=== PATIENT | female | born 1955 | race Caucasian/White ===

== ENCOUNTER 2018-03-23 06:01 | Inpatient (IN) | payer OTHER ==
[~2018-03-23] VITALS: Ht 182.9 cm; Wt 142.7 kg
--- NOTE | ~2018-03-23 | EKG ---
[address] [address] [facility] [place] [address] ELECTROCARDIOGRAM REPORT Name: TOD FERGUSON Room #: 463-P [facility] IN .R.#: [id number] Admission: 03/23/18 Attend Phys: Karthik Leon MD Discharge: Date of : 57 Report #: [id number] THIS REPORT FOR: //name// [facility] ED Test Date: 2018-03-23 Test Time: 06:06:39 Pat Name: TOD FERGUSON Department: Room: Gender: F Sap Integration Architect: MADDIE : 1955 Requested By: Izabel Todd Order Number: [id number] MD: Danilo Jordan Measurements Intervals [place] Rate: 96 P: AR: QRS: 27 QRSD: 130 T: 51 QT: 334 QTc: 422 Interpretive Statements Sinus rhythm Early R-wave progression Nonspecific T wave abnormality Compared to ECG 05/25/2014 18:02:42 No significant change was found Electronically Signed On 03-24-2018 14:03:49 CDT by Danilo Jordan [email or web address] <ELECTRONICALLY SIGNED> By: Danilo Jordan MD, [facility] 03/24/18 1403 0606 0606 Danilo Jordan MD, [facility] /EPI
[~2018-03-23 06:01] MED LIST: ADVAIR 500-501 EACH INH; ALBUTEROL2.5 MG/31 INH; COMBIVENT INH; COMBIVENT RESPIM4 GM INH; COUMADIN 5 MG TA5 M1 PO; COUMADIN7.5 MG PO; DOXYCYCLINE 10100 M2 PO; DUONEB 2.5-0.5 M3 ML; DUONEB 2.5-0.5 M3 ML INH; FUROSEMIDE 20 M20 M1 PO; IBUPROFEN 800800 M1 PO; LEVAQUIN 750 M750 MG PO; NICOTINE TRANSD14 M1 TRANSDERM; PREDNISONE 10 M10 MG PO; PREDNISONE 20 M20 MG PO; PREDNISONE50 MG PO; TRAMADOL 50 MG50 MG PO; VALIUM2 MG PO; VENTOLIN HFA 1818 GM INH
[2018-03-23 06:57] LABS: EOSINOPHILS 1.6 % (0.0-3.0)
[2018-03-23 06:59] LABS: ABSOLUTE NEUTROPHILS 11.3 thou/uL (1.4-8.2); BASOPHILS 0.7 % (0.0-2.0); HEMATOCRIT 43.2 % (37.0-47.0); HEMOGLOBIN 14.3 gm/dL (12.0-15.0); LYMPHOCYTES 14.1 % (24.0-44.0); MCH 28.3 pg (26.0-34.0); MCHC 33.1 g/dL (28.0-37.0); MCV 85.7 fL (80.0-100.0); MONOCYTES 6.3 % (1.0-8.0); PLATELET COUNT 250 thou/uL (150-400); POLYS 77.3 % (36.0-66.0); RBC 5.04 mil/uL (4.20-5.00); RDW 16.9 % (10.5-14.5); WBC 16.4 thou/uL (4.0-11.0)
[2018-03-23 07:10] LABS: APTT 22.9 Seconds (24.5-32.8); INR 1.1; PROTIME 11.7 Seconds (9.3-11.4)
[2018-03-23 08:08] LABS: ANION GAP 7 mmol/L (7-16); BUN 15 mg/dL (7-18); CALCIUM 8.1 mg/dL (8.5-10.1); CHLORIDE 104 mmol/L (98-107); CO2 27 mmol/L (21-32); CREATININE 1.1 mg/dL (0.6-1.0); GLUCOSE 120 mg/dL (74-106); POTASSIUM 3.7 mmol/L (3.5-5.1); SODIUM 138 mmol/L (136-145)
[2018-03-23 08:17] LABS: TROPONIN-I <0.06 ng/mL (<0.06)
[2018-03-23] MEDS ORDERED: ZPAK PO (08:45)
[2018-03-23] MEDS ORDERED: PREDNISONE 20 M20 MG PO (08:45)
[2018-03-23] MEDS ORDERED: ACCUNEB SO1.25 MG/1 INH (10:58)
[2018-03-23 13:19] VITALS: BP 144/93
[2018-03-23 14:00] VITALS: BP 137/88
[2018-03-23] MEDS ORDERED: COUMADIN 5 MG TA5 M1 PO (14:31)
[2018-03-23] MEDS ORDERED: EXCEDRIN CAPLE1 EACH PO (14:33)
[2018-03-23 15:00] VITALS: BP 137/88
[2018-03-23 19:44] VITALS: BP 152/79
[2018-03-24 03:17] VITALS: BP 127/69
[2018-03-24 05:27] LABS: HEMATOCRIT 41.2 % (37.0-47.0); HEMOGLOBIN 13.5 gm/dL (12.0-15.0); MCH 27.8 pg (26.0-34.0); MCHC 32.7 g/dL (28.0-37.0); MCV 84.9 fL (80.0-100.0); RBC 4.85 mil/uL (4.20-5.00); RDW 16.6 % (10.5-14.5); WBC 10.6 thou/uL (4.0-11.0)
[2018-03-24 05:39] LABS: CALCIUM 8.3 mg/dL (8.5-10.1); CREATININE 1.1 mg/dL (0.6-1.0); INR 1.2; POTASSIUM 3.8 mmol/L (3.5-5.1); PROTIME 12.5 Seconds (9.3-11.4)
[2018-03-24 08:00] VITALS: BP 150/85
[2018-03-24 16:00] VITALS: BP 149/80
[2018-03-24 19:50] VITALS: BP 162/98
[2018-03-25 03:58] VITALS: BP 131/74
[2018-03-25 05:46] LABS: HEMATOCRIT 42.8 % (37.0-47.0); HEMOGLOBIN 13.9 gm/dL (12.0-15.0); MCH 27.8 pg (26.0-34.0); MCHC 32.4 g/dL (28.0-37.0); MCV 85.8 fL (80.0-100.0); RBC 4.99 mil/uL (4.20-5.00); RDW 16.7 % (10.5-14.5); WBC 14.2 thou/uL (4.0-11.0)
[2018-03-25 06:05] LABS: CALCIUM 8.5 mg/dL (8.5-10.1); CREATININE 1.1 mg/dL (0.6-1.0); POTASSIUM 3.9 mmol/L (3.5-5.1)
[2018-03-25 08:00] VITALS: BP 156/99
[2018-03-25 10:01] LABS: INR 1.8; PROTIME 18.2 Seconds (9.3-11.4)
[2018-03-25 16:00] VITALS: BP 140/82
[2018-03-25 19:41] VITALS: BP 149/96
[2018-03-26 01:03] VITALS: BP 186/88
[2018-03-26 01:06] LABS: GLYCOHEMOGLOBIN (HGB A1C) 5.7 % (4.8-5.6)
[2018-03-26 08:03] VITALS: BP 156/85
[2018-03-26 08:31] LABS: PROTIME 20.4 Seconds (9.3-11.4)
[2018-03-26] MEDS ORDERED: COMBIVENT INH (15:00)
[2018-03-26] MEDS ORDERED: ADVAIR 500-501 EACH INH (15:01)
[2018-03-26] MEDS ORDERED: VENTOLIN HFA 1818 GM INH (15:01)
[2018-03-26] MEDS ORDERED: LASIX 20 MG TAB20 MG PO (15:02)
[2018-03-26] MEDS ORDERED: LEVAQUIN 750 M750 MG PO (15:02)
[2018-03-26] MEDS ORDERED: PREDNISONE 10 M10 MG PO (15:04)
[2018-03-26] MEDS ORDERED: NICOTINE TRANSD14 M1 TRANSDERM (15:06)
[2018-03-26 15:29] VITALS: BP 156/85
== END 2018-03-26 16:07 | disposition home or self-care (01) | DRG 193 ==
LOC: ER 06:01 → EROBS 08:59 → 4W 14:14 → SICU 03-25 21:03 → ENTRNSPT 03-26 15:59 → SICU 03-26 16:07
PROVIDERS: Emergency Medicine; Hospitalist
DX: J18.9 Pneumonia, unspecified organism (principal); J96.21 Acute and chronic respiratory failure with hypoxia; J44.1 Chronic obstructive pulmonary disease with (acute) exacerbation; J44.0 Chronic obstructive pulmonary disease with (acute) lower respiratory infection; G43.909 Migraine, unspecified, not intractable, without status migrainosus; F17.210 Nicotine dependence, cigarettes, uncomplicated; Z86.718 Personal history of other venous thrombosis and embolism; Z88.2 Allergy status to sulfonamides; Z79.899 Other long term (current) drug therapy; Z79.82 Long term (current) use of aspirin; Z86.711 Personal history of pulmonary embolism
CPT/HCPCS: 10045; 15001

== ENCOUNTER 2018-04-20 02:57 | Emergency (ER) | payer OTHER ==
[~2018-04-20] VITALS: Ht 182.9 cm; Wt 136.1 kg
--- NOTE | ~2018-04-20 | EKG ---
[address] [address] [place] [address] ELECTROCARDIOGRAM REPORT Name: TOD FERGUSON Room #: [facility]#: [id number] Admission: 04/20/18 Attend Phys: Discharge: 04/20/18 Date of : 57 Report #: [id number] THIS REPORT FOR: //name// [facility] ED Test Date: 2018-04-20 Test Time: 03:25:08 Pat Name: TOD FERGUSON Department: Room: Gender: F Neon Pumper: latonia arriola : 1955 Requested By: Izabel Todd Order Number: [id number] MD: Rajat Hirsch Measurements Intervals [place] Rate: 88 P: 67 MD: 161 QRS: 13 QRSD: 101 T: 54 QT: 367 QTc: 444 Interpretive Statements Sinus rhythm RSR' in V1 or V2, right VCD Borderline T abnormalities, anterior leads Compared to ECG 03/23/2018 06:06:39 Right ventricular hypertrophy now present RSR' in V1 or V2 now present T-wave abnormality still present Electronically Signed On 04-20-2018 10:15:59 CDT by Rajat Hirsch [email or web address] <ELECTRONICALLY SIGNED> By: Rajat Hirsch MD 04/20/18 1015 0325 0325 Rajat Hirsch MD /EPI
[~2018-04-20 02:57] MED LIST changes: +ACCUNEB SO1.25 MG/1 INH; +EXCEDRIN CAPLE1 EACH PO; +LASIX 20 MG TAB20 MG PO; +ZPAK PO
[2018-04-20 04:03] LABS: ABSOLUTE NEUTROPHILS 6.4 thou/uL (1.4-8.2); BASOPHILS 0.6 % (0.0-2.0); EOSINOPHILS 1.4 % (0.0-3.0); HEMATOCRIT 40.6 % (37.0-47.0); HEMOGLOBIN 13.4 gm/dL (12.0-15.0); LYMPHOCYTES 15.8 % (24.0-44.0); MCH 28.1 pg (26.0-34.0); MCHC 32.9 g/dL (28.0-37.0); MCV 85.5 fL (80.0-100.0); MONOCYTES 6.8 % (1.0-8.0); PLATELET COUNT 305 thou/uL (150-400); POLYS 75.4 % (36.0-66.0); RBC 4.75 mil/uL (4.20-5.00); RDW 16.8 % (10.5-14.5); WBC 8.4 thou/uL (4.0-11.0)
[2018-04-20 04:10] LABS: ANION GAP 4 mmol/L (7-16); BUN 18 mg/dL (7-18); CALCIUM 8.8 mg/dL (8.5-10.1); CHLORIDE 106 mmol/L (98-107); CO2 29 mmol/L (21-32); CREATININE 1.5 mg/dL (0.6-1.0); GLUCOSE 115 mg/dL (74-106); POTASSIUM 4.8 mmol/L (3.5-5.1); SODIUM 139 mmol/L (136-145)
[2018-04-20 04:19] LABS: TROPONIN-I <0.06 ng/mL (<0.06)
[2018-04-20] MEDS ORDERED: PREDNISONE 20 M20 MG PO (04:59)
== END 2018-04-20 05:13 | disposition home or self-care (01) ==
LOC: ER 02:57
PROVIDERS: Emergency Medicine
DX: J44.1 Chronic obstructive pulmonary disease with (acute) exacerbation (principal); F17.210 Nicotine dependence, cigarettes, uncomplicated; G43.909 Migraine, unspecified, not intractable, without status migrainosus; Z88.2 Allergy status to sulfonamides; Z86.718 Personal history of other venous thrombosis and embolism

== ENCOUNTER 2019-04-28 11:53 | Inpatient (IN) | payer OTHER ==
[~2019-04-28] VITALS: Ht 182.9 cm; Wt 149.7 kg
[2019-04-28 11:56] VITALS: BP 131/81
[2019-04-28 12:38] LABS: ABSOLUTE NEUTROPHILS 7.5 thou/uL (1.4-8.2); BASOPHILS 0.6 % (0.0-2.0); EOSINOPHILS 0.8 % (0.0-3.0); HEMATOCRIT 44.6 % (37.0-47.0); HEMOGLOBIN 14.8 gm/dL (12.0-15.0); LYMPHOCYTES 14.6 % (24.0-44.0); MCH 29.2 pg (26.0-34.0); MCHC 33.3 g/dL (28.0-37.0); MCV 87.6 fL (80.0-100.0); MONOCYTES 6.3 % (1.0-8.0); POLYS 77.7 % (36.0-66.0); RBC 5.09 mil/uL (4.20-5.00); RDW 15.6 % (10.5-14.5); WBC 10.2 thou/uL (4.0-11.0)
[2019-04-28 12:49] LABS: ANION GAP 7 mmol/L (7-16); BUN 14 mg/dL (7-18); CALCIUM 9.3 mg/dL (8.5-10.1); CHLORIDE 103 mmol/L (98-107); CO2 30 mmol/L (21-32); CREATININE 1.1 mg/dL (0.6-1.0); GLUCOSE 103 mg/dL (74-106); POTASSIUM 4.5 mmol/L (3.5-5.1); SODIUM 140 mmol/L (136-145)
[2019-04-28 13:00] LABS: ALBUMIN 3.3 g/dL (3.4-5.0); SGOT 13 U/L (15-37); SGPT 20 U/L (30-65); TOTAL BILIRUBIN 0.5 mg/dL (<0.1-1.0); TOTAL PROTEIN 7.5 g/dL (6.4-8.2); TROPONIN-I <0.06 ng/mL (<0.06)
[2019-04-28 13:20] LABS: PLATELET COUNT 253 thou/uL (150-400)
[2019-04-28 13:46] LABS: PROTIME 10.4 Seconds (9.3-11.4)
[2019-04-28 13:50] LABS: URINE BILIRUBIN NEGATIVE (Negative); URINE BLOOD NEGATIVE (Negative); URINE CLARITY CLEAR; URINE COLOR YELLOW; URINE GLUCOSE-RANDOM* NEGATIVE (Negative); URINE KETONES NEGATIVE (Negative); URINE LEUKOCYTES NEGATIVE (Negative); URINE NITRITE NEGATIVE (Negative); URINE PROTEIN (DIPSTICK) NEGATIVE (Negative); URINE UROBILINOGEN 0.2 E.U./dl (0.2-1.0)
[2019-04-28 13:56] LABS: APTT 27.2 Seconds (24.5-32.8)
[2019-04-28 16:59] VITALS: BP 127/73
[2019-04-28 17:16] VITALS: BP 150/78
[2019-04-28 18:05] VITALS: BP 149/70
--- NOTE | 2019-04-28 21:37 | NUR ---
ADMISSION NOTE: SHE IS SITTING UP AND ATE 100% DINNER. CTA COMPLETED AT SHIFT CHANGE. HER CONCERN AND MAIN REASON THAT BROUGHT HER TO THE HOSPITAL WAS HER INABILITY TO GET HER MEDICATIONS. SHE RECENTLY RELOCATED TO [place] AND IS UNABLE TO GET HER MEDICATIONS. SHE IS CURRENTLT WORKING ON PAPERWORK THAT NEEDS TO BE SUBMITTED. I OFFERED THE HELP OF CASEMANAGEMENT TO ASSIST WITH QUESTION ON PAPERWORK IF NEEDED. SHE STATED THAT HER LIVING SITUATION HAS IMPROVED RECENTLY, WITH THIS MOVE. SHE IS UNAGREEABLE AND ANXIOUS, SHE REQUESTS THAT HER LEGS ARE WRAPPED IN KERLIX TONIGHT, AND WOULD LIKE THE SCD HOSE. SHE HAS CLEAR SKIN EXCEPT FOR TWO ABRASION AREAS WHICH ARE SMALL. SHE CONTINUES TO SMOKE AND HAS A NICOTINE PATCH ORDERED. SHE STATED THAT SHE WANTS EXECEDRIN FOR A HEADACHE. I OFFERED TYLENOL AND A CAFFIENATED DRINK, INSTEAD. SHE STATED THAT TYLENOL DOES NOTHING AND REFUSES TO TRY. HOWEVER, SHE DID ACCEPT THE COLA. I EXPLAINED THAT THE USE OF ASPRIN WITH THE COUMADIN IS CONTRAINDICATED AND THAT SHE SHOULD SPEAK WITH HER PHYSCIAN REGARDING THIS.
[2019-04-29 04:36] VITALS: BP 155/85
[2019-04-29 05:12] LABS: PROTIME 10.7 Seconds (9.3-11.4)
[2019-04-29 05:18] LABS: CALCIUM 8.5 mg/dL (8.5-10.1); CREATININE 1.1 mg/dL (0.6-1.0); MAGNESIUM 2.3 mg/dL (1.8-2.4); POTASSIUM 4.8 mmol/L (3.5-5.1)
[2019-04-29 07:48] VITALS: BP 153/84
--- NOTE | 2019-04-29 08:15 | EKG ---
[address] [place] [address] ELECTROCARDIOGRAM REPORT Name: TOD FERGUSON Room #: 354-P ADM IN M.R.#: [id number] Admission: 04/28/19 Attend Phys: Jeremy Aviles MD Discharge: Date of : 57 Report #: [id number] THIS REPORT FOR: //name// [facility] ED Test Date: 2019-04-28 Test Time: 12:01:28 Pat Name: TOD FERGUSON Department: Room: 354 Gender: F Navy Seal: KELLIE : 1955 Requested By: Izabel Todd Order Number: [id number] MD: Danilo Jordan Measurements Intervals [place] Rate: 79 P: 45 RI: 146 QRS: 33 QRSD: 120 T: 32 QT: 358 QTc: 411 Interpretive Statements Sinus rhythm Right ventricular conduction delay Baseline wander in lead(s) V2 Compared to ECG 04/20/2018 03:25:08 No significant change was found Electronically Signed On 04-29-2019 8:15:40 CDT by Danilo Jordan [email or web address] <ELECTRONICALLY SIGNED> By: Danilo Jordan MD, [facility] 04/29/19 0815 1201 1201 Danilo Jordan MD, [facility] /EPI
--- NOTE | 2019-04-29 10:24 | NUR ---
RD consult received, no reason specified. Admit with copd, pneumonia. Noncompliance and continues +tobacco use. BMI 44=extreme class III obesity with possible wt gain 16 lb gain over past year-however does have bilateral 3+ leg and arm edema documented and requires lasix. Tolerating meals, voiced no questions regarding diet. Has some skin abrasions, but otherwise low nutrition risk
--- NOTE | 2019-04-29 11:13 | NUR ---
WOUND CONSULT; NO WOUNDS IDENTIFIED, ONLY LYMPHEDEMA. THIS IS MANAGED BY O.T. RECOMMENDATIONS; NO NEED TO FOLLOW AT THIS TIME DISCUSSED WITH STAFF
--- NOTE | 2019-04-29 14:47 | NUR ---
ASSESSMENT: CM REVIEWED CHART AND MET WITH PATIENT AT THE BEDSIDE. PT IS ALERT AND ORIENTED X4. PT WAS ADMITTED WITH DYSPNEA. PT REPORTS LIVING IN AN APT WITH HER . PT STATES IT IS ON THE FIRST FLOOR AND HAS NO STEPS TO ENTER OR ONCE INSIDE. PT REPORTS THAT SHE AMBULATES INDEPENDENTLY AND IS INDEPENDENT WITH ADLS. PT DENIES HAVING HH IN THE PAST OR BEING TO A SNF. CM DISCUSSED ROLE. PT STATES SHE MAY BENEFIT FROM HH AT DISCHARGE. PT REPORTS SHE ALSO HAS OXYGEN PRN AT HOME THROUGH [facility]. CM WILL CONTINUE TO FOLLOW TO ASSIST NEEDED.
[2019-04-29 16:05] VITALS: BP 158/92
--- NOTE | 2019-04-29 18:44 | NUR ---
ASSUMED PATIENT CARE AT 0700. A/O X4. ANXIOUS. AMBULATED IN ROOM WITH STB. 4+ EDEMA BLE. BLE ERMA WRAPED. TOLEATED ON 3L. SLOWLY TOWARDS POC GOALS.
[2019-04-29 19:42] VITALS: BP 143/81
[2019-04-30 03:30] VITALS: BP 152/74
--- NOTE | 2019-04-30 06:08 | NUR ---
FOLLOWING POC WITH IVPB ANTIBIOTICS AND METHYLPRED Q6. PT ASKED OR ORAL PAIN MEDICATION X1. PT AMBULATES AD LAILA TO BATHROOM. DISCUSSED POC WITH PT AND ANSWERED HER QUESTIONS ABOUT POSSIBLE DISCHARGE. EDUCATED PT ON TYPICAL IVPB THERAPY AND ISSUES WITH DISCHARGING EARLY. PT SUGGESTED SHE WILL SPEAK WITH DOCTOR DURING ROUNDS. HOURLY ROUNDING AND CALL LIGHT WITHIN REACH.
[2019-04-30 06:17] LABS: HEMATOCRIT 43.9 % (37.0-47.0); HEMOGLOBIN 14.3 gm/dL (12.0-15.0); MCH 28.6 pg (26.0-34.0); MCHC 32.7 g/dL (28.0-37.0); MCV 87.4 fL (80.0-100.0); RBC 5.02 mil/uL (4.20-5.00); RDW 15.9 % (10.5-14.5); WBC 8.9 thou/uL (4.0-11.0)
[2019-04-30 06:27] LABS: CALCIUM 8.8 mg/dL (8.5-10.1); CREATININE 1.2 mg/dL (0.6-1.0); POTASSIUM 4.5 mmol/L (3.5-5.1)
[2019-04-30 08:03] VITALS: BP 152/91
[2019-04-30] MEDS ORDERED: PREDNISONE 10 M10 MG PO (12:51)
[2019-04-30 13:59] VITALS: BP 152/91
--- NOTE | 2019-04-30 13:59 | NUR ---
ON-GOING ASSESSMENT: CM REVIEWED CHART AND SPOKE WITH ATTENDING. PT HAS ORDERS TO DISCHARGE HOME. PT HAS MEDICAID SO IS UNABLE TO GET HH LYMPHEDEMA WRAPPING DUE TO OT DOING THIS AND PATIENT DOES NOT QUALIFY FOR THERAPIES AT HOME WITH [place] MEDICAID. CM DISCUSSED THIS WITH PATIENT AND THAT SHE COULD TRY DOING IT OUTPATIENT. PT STATING HER CAN DO IT AND HAD BEEN THERE WHEN THEY DID IT EARLIER. PT REPORTS SHE IS CONFORTABLE WITH HER DOING IT AND DOES NOT FEEL SHE NEEDS HH. CM REACHED OUT TO HH AND THEY STATED THAT OT H TO DO IT AND NOT NURSING DO IT COULD NOT BE DONE. PT REPORTS NO FURTHER NEEDS FROM CM.
[2019-04-30] MEDS ORDERED: VENTOLIN HFA 1818 GM INH (14:41)
[2019-04-30] MEDS ORDERED: COMBIVENT INH (14:42)
--- NOTE | 2019-04-30 15:22 | NUR ---
ASSUMED CARE OF PT AT 0700. PT ALERT AND ORIENTED IN NO ACUTE DISTRESS. BREATHING COMFORTABLY ON ROOM AIR. DIMINISHED/OCCASIONAL WHEEZES TO AUSCULTATION. UP AD LAILA W/ STEADY GAIT. SINUS ON TELEMETRY. VITALS STABLE. OK FOR DISCHARGE.
--- NOTE | 2019-04-30 15:33 | NUR ---
SPOKE WITH CM AND FOUND OUT Pt WAS BEING DISCHARGE. WENT UP TO ROOM TO PROVIDE PT/SPOUSE WITH INSTRUCTION ON HOW TO BANDAGE AND LYMPHEDEMA PRECAUTIONS. Pt WAS DISCHARGE BEFORE THERAPIST ARRIVED. WILL MAIL INSTRUCTION TO [facility].
== END 2019-04-30 15:25 | disposition home or self-care (01) | DRG 191 ==
LOC: ER 11:53 → EROBS 14:34 → 3W 17:16 → ENTRNSPT 04-30 15:19 → EDTRNSPTSTS 04-30 15:20 → 3W 04-30 15:25
PROVIDERS: Emergency Medicine; Internal Medicine; Nurse Practitioner; ADMIT Internal Medicine
DX: J44.1 Chronic obstructive pulmonary disease with (acute) exacerbation (principal); Z68.41 Body mass index [BMI] 40.0-44.9, adult; F17.210 Nicotine dependence, cigarettes, uncomplicated; E66.9 Obesity, unspecified; G43.909 Migraine, unspecified, not intractable, without status migrainosus; L53.9 Erythematous condition, unspecified; Z86.718 Personal history of other venous thrombosis and embolism; Z88.2 Allergy status to sulfonamides; Z91.14 Patient's other noncompliance with medication regimen; Z86.711 Personal history of pulmonary embolism; Z79.899 Other long term (current) drug therapy
CPT/HCPCS: 10879

== ENCOUNTER 2019-06-07 10:45 | Emergency (ER) | payer OTHER ==
[~2019-06-07] VITALS: Ht 182.9 cm; Wt 144.7 kg
[2019-06-07] MEDS ORDERED: ALBUTEROL2.5 MG/31 INH (11:13)
[2019-06-07 11:41] LABS: ABSOLUTE NEUTROPHILS 5.9 thou/uL (1.4-8.2); EOSINOPHILS 2.5 % (0.0-3.0); LYMPHOCYTES 14.4 % (24.0-44.0); MCH 27.8 pg (26.0-34.0); MCHC 31.9 g/dL (28.0-37.0); MCV 87.3 fL (80.0-100.0); MONOCYTES 9.1 % (1.0-8.0); PLATELET COUNT 296 thou/uL (150-400); RBC 5.38 mil/uL (4.20-5.00); RDW 15.8 % (10.5-14.5)
[2019-06-07 11:44] LABS: CALCIUM 9.3 mg/dL (8.5-10.1); CREATININE 1.1 mg/dL (0.6-1.0); POTASSIUM 4.3 mmol/L (3.5-5.1)
[2019-06-07 11:49] LABS: ALBUMIN 3.3 g/dL (3.4-5.0); TOTAL BILIRUBIN 0.4 mg/dL (<0.1-1.0); TOTAL PROTEIN 7.7 g/dL (6.4-8.2)
--- NOTE | 2019-06-07 12:02 | EKG ---
[facility] [place] [address] ELECTROCARDIOGRAM REPORT Name: TOD FERGUSON Room #: [facility]#: [id number] ������������������ Admission: 06/07/19 ������������������ Attend Phys: Discharge: ������������������ Date of : 57 Report #: [id number] ����������������������������������������������������������������� [id number] THIS REPORT FOR: //name// [facility] ED Test Date: 2019-06-07 Test Time: 11:42:31 Pat Name: TOD FERGUSON Department: Room: Gender: F Heating Technician: jlpamela : 1955 Requested By: Shilpa Gomez Order Number: [id number] MD: Danilo Jordan Measurements Intervals [place] Rate: 79 P: 53 MA: 147 QRS: 12 QRSD: 92 T: 32 QT: 377 QTc: 433 Interpretive Statements Sinus rhythm RSR' in V1 or V2, right VCD Borderline T abnormalities, anterior leads Compared to ECG 04/28/2019 12:01:28 No significant change was found Electronically Signed On 06-07-2019 12:02:07 CDT by Danilo Jordan [email or web address] ��������������������������������������������� <ELECTRONICALLY SIGNED> ���������������������������������������� By: Danilo Jordan MD, [facility] ��������������������������������������������� 06/07/19 1202 1142 1142 Danilo Jordan MD, [facility] /EPI
[2019-06-07] MEDS ORDERED: KEFLEX500 M1 PO (12:31)
[2019-06-07 12:38] VITALS: BP 133/76
== END 2019-06-07 12:39 | disposition home or self-care (01) ==
LOC: ER 10:45
PROVIDERS: Physician Assistant
DX: S81.812A Laceration without foreign body, left lower leg, initial encounter (principal); R60.0 Localized edema; J44.9 Chronic obstructive pulmonary disease, unspecified; G43.909 Migraine, unspecified, not intractable, without status migrainosus; F17.210 Nicotine dependence, cigarettes, uncomplicated; Z86.711 Personal history of pulmonary embolism; Z86.718 Personal history of other venous thrombosis and embolism; Z88.2 Allergy status to sulfonamides; W22.8XXA Striking against or struck by other objects, initial encounter; Y93.02 Activity, running; Y92.89 Other specified places as the place of occurrence of the external cause; Y99.8 Other external cause status

== ENCOUNTER 2019-11-20 20:08 | Inpatient (IN) | payer OTHER ==
[~2019-11-20] VITALS: Ht 182.9 cm; Wt 152.4 kg
--- NOTE | ~2019-11-20 | HC ---
[facility] [place] [address] CONSULTATION Name: CHRIS FERGUSON Room #: 350-P [facility] IN .R.#: [id number] Admission: 11/20/19 Attend Phys: Denzel Willams MD Discharge: Date of : 57 Report #: [id number] THIS REPORT FOR: cc: Denzel Willams MD,Kyle Caldera MD, MD ~ CC: Denzel Willams DATE OF SERVICE: 11/24/2019 HISTORY OF PRESENT ILLNESS: The patient is a 64-year-old female who was admitted with shortness of breath and community-acquired pneumonia. She was diagnosed with COPD exacerbation. She has been treated with IV antibiotics, prednisone, and bronchodilators. We are seeing her in Rehabilitation Medicine consultation. She has a prior history of morbid obesity, chronic bilateral lower extremity lymphedema, pulmonary embolism, and hypertension. She has been a chronic tobacco smoker, quit approximately a month ago. She also had a recent fall with sutures to her forehead that were just removed earlier today. MEDICATIONS: Please see the full medication listing. ALLERGIES: SULFA. SOCIAL HISTORY: Lives with her in an apartment, no steps. works during the day and she is at home. Premorbidly, she was on 2-3 liters of oxygen. She sleeps in a recliner. wraps her lower extremities with her lymphedema. She notes that her is taking a couple of weeks off to stay with her and she has a [id number] that is involved as well who is bringing in her walker. REVIEW OF SYSTEMS: No current complaints of chest pain, shortness of breath, or abdominal discomfort. She notes her frustration with being here and is hoping to return directly home. She notes she is grumpy because she recently quit smoking. PHYSICAL EXAMINATION: GENERAL: A 64-year-old morbidly obese female, in no obvious distress. Height 6 feet, weight 345 pounds. She is alert. VITAL SIGNS: Temperature 97.8, pulse 75, respirations 24, blood pressure 152/78. She is on nasal prong O2, currently 4 liters. HEENT: She has the laceration over her forehead with the suture removed. Facies appeared symmetric. NEUROLOGIC: She is somewhat cantankerous, but does follow basic commands. EXTREMITIES: Functional range of motion of both upper extremities. Strength is grade 5/5 with excellent wire spring relay adjuster. Lower extremities: She does have bilateral lower extremity lymphedema. ERMA wraps are in place distally. Strength is at [address] [address] CONSULTATION Name: CHRIS FERGUSON Room #: [address] [place] [address] [place] ..#: [id number] Admission: 11/20/19 Attend Phys: Denzel Willams MD Discharge: Date of : 57 Report #: [id number] least a grade 4-/5. Tone appeared to be intact. She was able to get up and she ambulated with the nurse around the hallway utilizing a walker, her oxygen and a gait belt. She refused to get up with physical therapy because she had just gotten up with the nurse. ASSESSMENT: A 64-year-old female with the following problem list: 1. Chronic obstructive pulmonary disease exacerbation. 2. Chronic bilateral lower extremity lymphedema. 3. Recent fall with facial laceration with suture removal. 4. Morbid obesity. 5. Nicotine addiction. PLAN: The patient did get up and ambulate with the nursing today out in the hallway. She utilized a walker and was just needing gait belt assistance to standby. She is adamant about returning directly home and notes that her is off work and can assist her and she has a brother there as well. Discussed with case management. The therapist to continue to work with her as she will allow. At this point, the goal would be to try to get her directly home if and when felt medically cleared as per Dr. Willams. She is not interested in any type of rehabilitation other than going directly home and would then recommend some home healthcare. Thank you for asking us to assist in this patient's care. By: [phone] Kyle Meza MD /SITA
--- NOTE | ~2019-11-20 | EMS ---
[address] [address] EMS Patient Care Report Name: TOD FERGUSON Room #: PRE M.R.#: [id number] Admission: Attend Phys: Discharge: Date of : 57 Report #: [id number] THIS REPORT FOR: //name// Report Transmitted: 11/20/2019 19:28 EMS Care Summary [facility] MED-ACT Incident [id number] @ 11/20/2019 19:23 Incident Location [address] [place] [address] Patient CHRIS FERGUSON Female, 64 Years 1955 Patient Address [address] [place] [address] Patient History Chronic Obstructive Pulmonary Disease (COPD),Hypertension (HTN),Smoking, Patient Allergies No known allergies, Patient Medications Proair, Albuterol, Chief Complaint injury to chest Disposition Transported No Lights/[place] Reason Sick Person Transported To [facility] Narrative Upon EMS arrival pt was sitting upright on her couch. Pt was alert and oriented. Pt states that she fell 7 days ago. Pt was evaluated at an ED X2 [address] [address] EMS Patient Care Report Name: TOD FERGUSON Room #: [facility]#: [id number] Admission: Attend Phys: Discharge: Date of : 57 Report #: [id number] since the fall. Pt has stitches in her forehead. Pt is complaining of a headache. Pt has bruising to the left side of her chest. pt is complaining of left sided chest pain with movement or coughing. Pt is also complaining of a swollen and painful left leg. Pts is obese so it is difficult for EMS to tell the degree of swelling. Both legs are red. pt has an increased resp rate but states that this is normal for her. Pt was able to stand and sit on the cot and was secured by all straps. Pt was transported to [facility] at her request despite being evaluated at [facility] prior to this. Pts vitals stable during transport. pt states during transport that she "has felt cold and achy like the flu". Mask placed on pt. Pt was taken to room 10 and was moved to the ED bed by EMS and ED staff. Report given to RN Initial Vitals @19:42P: 94,R: 19,EtCO2: 30,SpO2: 89,UT Suspected: false @19:58P: 89,R: 26,BP: 140/88,Temp: 97.6F,EtCO2: 38,SpO2: 96, @19:40P: 100,R: 28,BP: 178/94,GCS: 15,EtCO2: 39,SpO2: 85,Revised Trauma: 12, @19:37P: 107,R: 24,BP: 182/109,Pain: 4/10,GCS: 15,SpO2: 85,Revised Trauma: 12,UT Suspected: false Assessments @19:35MENTAL:Person Oriented,Time Oriented,Event Oriented,Place Oriented,SKIN:HEENT:Head/Face: No Abnormalities,Neck/Airway: No Abnormalities,LUNG SOUNDS:ABDOMEN:PELVIS//GI:EXTREMITIES:Left Leg: Other,Left Leg: Edema,Right Leg: Edema,Left Arm: No Abnormalities,Right Arm: No Abnormalities,PULSE:NEURO: Impression Chest Pain, Other (Non-Cardiac) Procedures @19:4212-Lead ECGResponse: UnchangedSucceeded@19:35Oxygen FlowRate: 4 Device: CO2 Nasal Cannula Response: ImprovedSucceeded Timeline 19:22,Call Received 19:22,Psap Call 19:23,Dispatched 19:23,En Route 19:29,On Scene 19:30,At Patient 19:35,Oxygen FlowRate: 4 Device: CO2 Nasal Cannula Response: ImprovedSucceeded, 19:37,BP: 182/109 M,PULSE: 107,RR: 24 R,SPO2: 85 Ox,ETCO2: ,BG: ,PAIN: 4,GCS: 15, 19:40,BP: 178/94 M,PULSE: 100,RR: 28 R,SPO2: 85 Ox,ETCO2: 39 ,BG: ,PAIN: ,GCS: 15, 19:42,12-Lead ECG,Response: UnchangedSucceeded, [facility] [address] [place] [address] EMS Patient Care Report Name: TOD FERGUSON Room #: [facility].#: [id number] Admission: Attend Phys: Discharge: Date of : 57 Report #: [id number] 19:42,BP: / M,PULSE: 94,RR: 19 R,SPO2: 89 Ox,ETCO2: 30 ,BG: ,PAIN: ,GCS: , 19:44,Depart Scene 19:58,BP: 140/88 M,PULSE: 89,RR: 26 R,SPO2: 96 Ox,ETCO2: 38 ,BG: ,PAIN: ,GCS: , 20:02,At Destination 20:30,Call Closed Disclaimer v1.1 Copyright 2020 [employer] This EMS Care Summary contains data elements from the applicable legal record (which may be displayed differently). It is designed to provide pertinent information for the following purposes: continuity of care, clinical quality, and state data reporting. The complete legal record is available to ED staff and administrators of the receiving hospital in [employer] Patient Tracker. All data is provided "as is."
[~2019-11-20 20:08] MED LIST changes: +KEFLEX500 M1 PO
[2019-11-20 20:09] VITALS: BP 156/80
[2019-11-20 20:27] LABS: ABSOLUTE NEUTROPHILS 6.7 thou/uL (1.4-8.2); BASOPHILS 0.9 % (0.0-2.0); EOSINOPHILS 2.1 % (0.0-3.0); HEMATOCRIT 41.9 % (37.0-47.0); HEMOGLOBIN 13.2 gm/dL (12.0-15.0); LYMPHOCYTES 13.9 % (24.0-44.0); MCHC 31.6 g/dL (28.0-37.0); MCV 85.3 fL (80.0-100.0); MONOCYTES 8.8 % (1.0-8.0); PLATELET COUNT 284 thou/uL (150-400); POLYS 74.3 % (36.0-66.0); RDW 15.7 % (10.5-14.5)
[2019-11-20 20:34] LABS: ANION GAP 6 mmol/L (7-16); BUN 16 mg/dL (7-18); CALCIUM 8.1 mg/dL (8.5-10.1); CHLORIDE 104 mmol/L (98-107); CO2 31 mmol/L (21-32); GLUCOSE 100 mg/dL (74-106); POTASSIUM 4.4 mmol/L (3.5-5.1); SODIUM 141 mmol/L (136-145)
[2019-11-20 20:43] LABS: TROPONIN-I <0.06 ng/mL (<0.06)
[2019-11-20 20:47] LABS: BE(vivo) 2.4 mmol/L (-2 to +3); HCO3 29.3 mmol/L (22.0-26.0); PCO2 55.3 mmHg (35.0-45.0); PO2 97.4 mmHg (80.0-100.0); pH 7.342 (7.360-7.450); sO2 96.9 % (92.0-98.0)
[2019-11-20 22:05] VITALS: BP 141/66
[2019-11-20 22:06] VITALS: BP 141/66
[2019-11-20 23:02] VITALS: BP 116/54
[2019-11-20 23:20] VITALS: BP 134/69
[2019-11-21 04:23] VITALS: BP 121/73
--- NOTE | 2019-11-21 05:55 | NUR ---
PT ARRIVED TO ROOM AROUND 2315 FROM THE ER. ADMISSION HX AND ASSESSMENT COMPLETED CHARTED. PT C/O LEFT SIDED RIB PAIN AND LEFT LEG PAIN DUE TO FALL PRIOR TO ADMISSION. PT HAS EXTENSIVE BRUISING ON LEFT SIDE OF BODY. BLE WRAPPED WITH KERLIX AND ERMA WRAPS PER DR ORDER. PRN PAIN MEDICATION GIVEN FOR PAIN. PT WAS THEN ABLE TO GO TO SLEEP. PT RESTING QUIETLY IN BED AT THIS TIME. VSS. AFEBRILE. PROGRESSING SLOWLY TOWARD POC GOALS. WILL CONTINUE TO MONITOR FURTHER.
[2019-11-21 07:06] VITALS: BP 150/81
--- NOTE | 2019-11-21 08:04 | EKG ---
[facility] [place] [address] ELECTROCARDIOGRAM REPORT Name: CHRIS FERGUSON Room #: 350-P ADM IN M.R.#: [id number] Admission: 11/20/19 Attend Phys: Denzel Willams MD Discharge: Date of : 57 Report #: [id number] THIS REPORT FOR: cc: Denzel Willams MD, Ammar MD Lundgren,Danilo Regan MD [facility] ~ THIS REPORT FOR: //name// [facility] ED Test Date: 2019-11-20 Test Time: 20:25:52 Pat Name: CHRIS FERGUSON Department: Room: 350 Gender: F All Round Butcher: phuong : 1955 Requested By: Wesley Tavarez Order Number: [id number] MD: Danilo Jordan Measurements Intervals [place] Rate: 91 P: 58 HI: 159 QRS: 29 QRSD: 89 T: 47 QT: 330 QTc: 407 Interpretive Statements Sinus rhythm RSR' in V1 or V2, right VCD Compared to ECG 06/07/2019 11:42:31 no significant change was found Electronically Signed On 11-21-2019 8:03:34 SERVICE TEAM LEADER by Danilo Jordan [email or web address] <ELECTRONICALLY SIGNED> By: Danilo Jordan MD, [facility] 11/21/19802 24 24 Danilo Jordan MD, [facility] /EPI
--- NOTE | 2019-11-21 14:16 | NUR ---
Nutrition: Received RD consult for obesity. Pt has been seen in the past by RD in Apr 2019 and declined diet education at this time. Seen again this afternoon. Here for COPD exacerbation, pneumonia, edema. Hx: COPD , chronic BLE lymphedema. Per EMR review, pt has gained +38# in < 2 yrs (some could be lymphedema related). Up from 314.6# in 03/2018, to 330# in 04/2019, now 353#. On a regular diet. RD offered nutrition education to improve eating habits at home. Pt denied, just started talking about her fall and her head stiches and bruising. RD did encourage pt to be mindful of having a balanced plate, with ideal goal of at least 3 food groups/meal to make it more complete. Explained examples. Keep as low nutrition risk as pt declined education intervention.
[2019-11-21 16:04] VITALS: BP 128/54
--- NOTE | 2019-11-21 16:57 | NUR ---
INITIAL ASSESSMENT: SW reviewed cahrt and spoke with nursing. Pt was admitted from home due to COPD exacerbation. SW met with pt and at bedside. Introduced role of SW. Pt is alert/orientated x 4. Pt reports that she and her live in an apt. No steps to navigate. Prior to admission, pt was independent with ADLs. No DME to use with ambulation. Pt has home O2 in place through [employer]. Pt states she is normally on 2-3L. No hx of HH services or post-acute placement in the past. Pt's PCP is Dr. Willams. Pt and spouse state that her does not cover HH services, and that they have a $4,000/month spenddown through her [place] Medicaid. No weekend discharge anticipated. Pt is agreeable with SW looking for in-network post acute services. SW is following to assist as needed with discharge planning.
[2019-11-21 19:27] VITALS: BP 129/70
--- NOTE | 2019-11-22 03:39 | NUR ---
ASSUMED CARE OF PT @1900 PT A&OX4. IV INTACT IN RT FA ABX INFUISING. GENERALIZIED EDEMA NOTED AND 3+ BLE WRAPPED WITH ERMA WRAP AND KERLIX. BRUSING NOTED ON LFT BREAST, LFT ARM AND HEAD FROM FALL PRIOR TO HOSPITALIZATION. PAIN MED GIVEN FOR MANAGEMENT AND PT SLEPT THE REST OF THE SHIFT. FALL PREC IN PLACE AND CALL LIGHT IN REACH WILL CONT WITH POC TILL EOS.
[2019-11-22 03:45] VITALS: BP 132/71
[2019-11-22 04:42] LABS: HEMATOCRIT 38.1 % (37.0-47.0); HEMOGLOBIN 11.7 gm/dL (12.0-15.0); MCH 26.8 pg (26.0-34.0); MCHC 30.9 g/dL (28.0-37.0); MCV 86.9 fL (80.0-100.0); RBC 4.38 mil/uL (4.20-5.00); RDW 15.6 % (10.5-14.5); WBC 8.9 thou/uL (4.0-11.0)
[2019-11-22 04:56] LABS: CALCIUM 8.1 mg/dL (8.5-10.1); CREATININE 1.1 mg/dL (0.6-1.0); POTASSIUM 4.6 mmol/L (3.5-5.1)
[2019-11-22 07:13] VITALS: BP 142/70
[2019-11-22 15:07] VITALS: BP 148/83
--- NOTE | 2019-11-22 18:39 | NUR ---
PT is A&OX3, pt is continuing IV ABX and pain management, pt starts iv lasix 40mg iv at 1400pm for edema, pt gets up to use BSC with assist, pt is continuing o2 4L/MIN/NC, PT has SOB with activities, pt's vs are stable at this time.
[2019-11-22 21:00] VITALS: BP 142/68
[2019-11-23 04:28] VITALS: BP 129/78
[2019-11-23 07:04] VITALS: BP 145/77
--- NOTE | 2019-11-23 07:31 | NUR ---
PT MAKING SLOW PROGRESS TOWARDS GOALS. BL LE ARE ERMA WRAPPED TOES TO KNEE. BOTH FEET HAVE LESS THAN 3 SECOND CAP REFILL. 3+BL UE EDEMA WITH 1+BL RADIAL PULSES. SEE CHARTING.
[2019-11-23 07:34] LABS: ABSOLUTE NEUTROPHILS 5.7 thou/uL (1.4-8.2); BASOPHILS 0.8 % (0.0-2.0); EOSINOPHILS 1.1 % (0.0-3.0); HEMOGLOBIN 12.9 gm/dL (12.0-15.0); LYMPHOCYTES 21.5 % (24.0-44.0); MCH 26.9 pg (26.0-34.0); MCHC 31.5 g/dL (28.0-37.0); MCV 85.5 fL (80.0-100.0); MONOCYTES 8.1 % (1.0-8.0); PLATELET COUNT 306 thou/uL (150-400); POLYS 68.5 % (36.0-66.0); RBC 4.79 mil/uL (4.20-5.00); RDW 15.3 % (10.5-14.5); WBC 8.4 thou/uL (4.0-11.0)
[2019-11-23 07:56] LABS: ALBUMIN 2.9 g/dL (3.4-5.0); CREATININE 1.1 mg/dL (0.6-1.0); POTASSIUM 3.8 mmol/L (3.5-5.1); TOTAL BILIRUBIN 0.4 mg/dL (<0.1-1.0)
[2019-11-23 15:20] VITALS: BP 147/79
--- NOTE | 2019-11-23 16:56 | NUR ---
PT is A&OX3, PT is continuing IV ABX AND O2 2L/MIN/NC, PT has SOB with activities , pt has started lasix 40mg iv BID, pt 's BLE edema has some improved, pt has a good uine out put, pt gets up to BSC with assist, pt denies pain at tis time.pt's vs are stable.
[2019-11-23 20:05] VITALS: BP 123/70
[2019-11-24 03:50] VITALS: BP 144/80
[2019-11-24 05:35] LABS: CALCIUM 8.2 mg/dL (8.5-10.1)
[2019-11-24 07:34] VITALS: BP 152/78
--- NOTE | 2019-11-24 07:45 | NUR ---
PT MAKING SLOW PROGRESS TOWARDS GOALS. PT REQUESTING TO WALK OUT INTO THE HALLWAY. DAY CHIEF NURSING OFFICER WILL HELP WITH THIS ONCE PT HAS USED THE BSC. PT ASKING WHEN THE REHAB CONSULT WILL BE DONE AND WHEN SHE WILL MOVE TO REHAB. ENCOURAGED TO TAKE ONE THINGS AT A TIME.
--- NOTE | 2019-11-24 10:44 | 2DMMODE ---
[facility] [address] [place] [address] 2 D/M-MODE ECHOCARDIOGRAM Name: CHRIS FERGUSON Room #: 350-P ADM IN M.R.#: [id number] Admission: 11/20/19 Attend Phys: Denzel Willams MD Discharge: Date of : 57 Report #: [id number] THIS REPORT FOR: cc: Denzel Willams MD, Ammar MD Lundgren,Danilo Regan MD [facility] ~ APPROVED REPORT Study performed: 11/24/2019 09:02:38 EXAM: Comprehensive 2D, Doppler, and color-flow Echocardiogram Patient Location: Bedside Room #: 353 Status: routine BSA: 2.69 HR: 82 bpm BP: 152/78 mmHg Rhythm: NSR Other Information Study Quality: Poor/not all measurements taken. Technically limited study due to morbid obesity, COPD.. Indications Leg edema, short of breath. Hx: COPD, PE. 2D Dimensions IVSd: 10.32 (7-11mm) LVDd: 47.99 mm PWd: 10.00 (7-11mm) LVDs: 35.49 (25-40mm) Aortic Valve AoV Peak Walter.: 1.43 m/s AO Peak Gr.: 8.19 mmHg LVOT Max P.52 mmHg LVOT Max V: 1.17 m/s Mitral Valve E/A Ratio: 1.1 MV Decel. Time: 263.94 ms MV E Max Walter.: 0.99 m/s MV A Walter.: 0.87 m/s [facility] [place] [address] [place] [address] 2 D/M-MODE ECHOCARDIOGRAM Name: CHRIS FERGUSON Room #: 350-P ADM IN .R.#: [id number] Admission: 11/20/19 Attend Phys: Denzel Willams MD Discharge: Date of : 57 Report #: [id number] PHT: 76.54 ms Tricuspid Valve RAP Estimate: 5.00 mmHg Left Ventricle The left ventricle is normal size. There is normal LV segmental wall motion. There is normal left ventricular wall thickness. Left ventricular systolic function is normal. LVEF is 55-60%. Right Ventricle Right ventricle is not well visualized but appears normal in size and function. Atria Both atria appeare normal in size. Aortic Valve The aortic valve is not well visualized. No aortic regurgitation is noted. There is no aortic valvular stenosis. Mitral Valve The mitral valve is normal in structure. There is no mitral valve regurgitation noted. Tricuspid Valve Tricuspid valve is not well visualized. There is no tricuspid valve regurgitation noted. Unable to assess PA pressure. Pulmonic Valve Pulmonic valve is not well visualized. Great Vessels The aortic root is normal in size. Ascending aorta is not well visualized. IVC is normal in size and collapses >50% with inspiration. Pericardium There is no pericardial effusion. <Conclusion> Technically limited study Left ventricular systolic function is normal. There is normal LV segmental wall motion. LVEF is 55-60%. The aortic valve is not well visualized. No aortic regurgitation or [facility] [address] [place] [address] 2 D/M-MODE ECHOCARDIOGRAM Name: CHRIS FERGUSON Room #: 350-P ADM IN .R.#: [id number] Admission: 11/20/19 Attend Phys: Denzel Willams MD Discharge: Date of : 57 Report #: [id number] The mitral valve is normal in structure. No mitral valve regurgitation Unable to assess pulmonary artery pressure. There is no pericardial effusion. <ELECTRONICALLY SIGNED> By: Danilo Jordan MD, [facility] 11/24/19 1043 [id number] Danilo Jordan MD, FACC /INF
[2019-11-24 16:11] VITALS: BP 140/66
--- NOTE | 2019-11-24 16:17 | NUR ---
FAXED FACE SHEET TO [facility] SPOKE WITH [facility] AND THEY ARE OUT OF NETWORK WITH PT'S INSURANCE.
--- NOTE | 2019-11-24 17:31 | NUR ---
Received consult for rehab placement. SW reviewed chart and spoke with nursing. [facility] consult ordered to evaluate pt for inpt acute rehab. SW discussed with [facility] rehabilitation clerk. [facility] is out of network with pt's insurance. [facility] rehab physician did meet with pt. Pt is wanting to return directly home when discharged. SW met with pt at bedside to discuss discharge plan. Pt is adamant about going home. Pt is agreeable with services. No preference voiced of a agency. neighborhood planner faxed referral to [facility]. [facility] is not in-network. HH referral faxed to [facility]. Awaiting input. APOLINAR updated attending physician. SW is following to assist as needed with discharge planning.
--- NOTE | 2019-11-24 18:40 | NUR ---
PT is A&OX3, PT is continuing O2 4L/MIN/NC, PT'S IV ABX has changed to PO, PT 'S VS are stable, pt gets up to walk in hallway 2 times with assist, pt still has SOB with activities, RN follows dr enrique, pt's forehead sutures have removed, pt is tolerated, suture skin is healing ,some red areas, no open areas, pt refused to plan to DC rehab , pt requests dc to home, SW has notified
[2019-11-24 19:28] VITALS: BP 142/61
--- NOTE | 2019-11-24 21:22 | NUR ---
PT RESTING IN BED WATCHING TV AND VISITING WITH FAMILY. O2 PER NC. PT INDEPENDENT TO BSC. OBESE, BLE BUE EDEMA. BILAT LEG WRAPS INTACT. PT NOT SOA WITH TRANSFER OR TALKING. PT VERBALIZED PLAN TO DC TO HOME IN AM. FOREHEAD LACERATION DRY AND PINK. LOVENOX GIVEN.
--- NOTE | 2019-11-25 02:49 | NUR ---
PT AWAKENED AND REQUESTED SEVERAL ICE CREAM, SHE STATED SHE HAS A SWEET TOOTH. PT AWAKE AND WATCHING TV.
[2019-11-25 04:13] VITALS: BP 140/76
[2019-11-25 07:12] VITALS: BP 147/68
[2019-11-25] MEDS ORDERED: PREDNISONE 20 M20 MG PO (07:34)
[2019-11-25] MEDS ORDERED: CEFUROXIME500 MG PO (07:34)
[2019-11-25] MEDS ORDERED: KLOR-CON M2020 MEQ PO (07:34)
[2019-11-25] MEDS ORDERED: LASIX 40 MG TAB40 MG PO (07:34)
[2019-11-25] MEDS ORDERED: NICOTINE TRANSD21 M1 TRANSDERM (07:34)
[2019-11-25 08:35] LABS: ABSOLUTE NEUTROPHILS 6.4 thou/uL (1.4-8.2); BASOPHILS 0.8 % (0.0-2.0); EOSINOPHILS 1.8 % (0.0-3.0); HEMATOCRIT 41.8 % (37.0-47.0); LYMPHOCYTES 22.3 % (24.0-44.0); MCH 26.5 pg (26.0-34.0); MCHC 31.2 g/dL (28.0-37.0); MONOCYTES 7.4 % (1.0-8.0); PLATELET COUNT 343 thou/uL (150-400); POLYS 67.7 % (36.0-66.0); RBC 4.91 mil/uL (4.20-5.00); RDW 15.1 % (10.5-14.5); WBC 9.5 thou/uL (4.0-11.0)
[2019-11-25 08:50] LABS: CALCIUM 8.9 mg/dL (8.5-10.1); CREATININE 1.1 mg/dL (0.6-1.0); POTASSIUM 4.1 mmol/L (3.5-5.1)
--- NOTE | 2019-11-25 08:50 | NUR ---
FAXED REFERRAL TO [facility] SPOKE WITH INTAKE AND THEY ARE OON WITH INSURANCE.
[2019-11-25 09:24] VITALS: BP 147/68
[2019-11-25 11:17] LABS: URINE BILIRUBIN NEGATIVE (Negative); URINE BLOOD NEGATIVE (Negative); URINE CLARITY CLEAR; URINE COLOR YELLOW; URINE GLUCOSE-RANDOM* NEGATIVE (Negative); URINE KETONES NEGATIVE (Negative); URINE LEUKOCYTES-REFLEX NEGATIVE (Negative); URINE NITRITE-REFLEX NEGATIVE (Negative); URINE PROTEIN (DIPSTICK) NEGATIVE (Negative); URINE SPECIFIC GRAVITY 1.015 (1.005-1.035)
--- NOTE | 2019-11-25 12:48 | NUR ---
PT is A&OX3, PT is continuing o2 4L/MIN/NC and PO ABX, PT'S SOB and BLE edema have some improved, pt's vs are stable, pt gets up to BSC with surpervision, pt's BLE weakness have improved, RN has received order to DC PT to home with home health , SW is looking for home health company for this patient now.pt denies pain and SOB at this time.
--- NOTE | 2019-11-25 13:57 | NUR ---
FAXED REFERRAL TO [facility] SPOKE WITH LINDA IN INTAKE SHE RECEIVED REFERRAL AND DOES NOT HAVE THE STAFF TO ACCEPT RIGHT NOW. FAXED REFERRAL TO [facility] SPOKE WITH MARTHA IN INTAKE SHE RECEIVED REFERRAL AND IS AT CAPACITY WITH STAFFING. FAXED REFERRAL TO [facility] SPOKE WITH QUEENIE IN INTAKE SHE RECEIVED REFERRAL AND IS CHECKING INSURANCE. DP TO FOLLOW.
[2019-11-25 15:29] VITALS: BP 143/82
--- NOTE | 2019-11-25 16:13 | NUR ---
DISCHARGE NOTE: SW reviewed chart and spoke with nursing. Pt has discharge orders to go home today. Orders written for services. environmental planner and SW contacted multiple agencies ([facility], [facility], [facility] [place], [facility], [facility], [facility], [facility], [facility], [facility], [facility] and [facility]) All are unable to accept pt due to insurance or staffing. SW met with pt at bedside to provide update. Pt verbalized understanding. SW contacted [facility] liaison to see if they would be able to provide reuben visits. Awaiting input at this time. [facility] is not able to provide reuben visits as pt has insurance. SW updated pt regarding inability to find a provider. SW to follow up with the agencies who might be able to when staffing is better. Pt verbalized understanding and is agreeable with discharge home today. Pt's spouse will provide transportation home around 1600. SW updated pt's nurse. SW is following to assist as needed with discharge planning.
--- NOTE | 2019-11-25 18:44 | NUR ---
RN HAS GIVING DC TEACHING TO PT AND OT'S FAMILY, BOTH UNDERSTAND WELL, PT'S FAMILY SUPERVISOR POLICY CHANGE CLERKS PT TO HOME AT 1650PM.
== END 2019-11-25 17:01 | disposition home or self-care (01) | DRG 190 ==
LOC: ER 20:08 → 3W 22:04 → EROBS 22:04 → 3W 23:28 → ENTRNSPT 11-25 16:27 → 3W 11-25 17:01
PROVIDERS: Emergency Medicine; Nurse Practitioner Adult Health; ADMIT Internal Medicine
DX: J44.1 Chronic obstructive pulmonary disease with (acute) exacerbation (principal); J18.9 Pneumonia, unspecified organism; Z68.42 Body mass index [BMI] 45.0-49.9, adult; J44.0 Chronic obstructive pulmonary disease with (acute) lower respiratory infection; G43.909 Migraine, unspecified, not intractable, without status migrainosus; F17.210 Nicotine dependence, cigarettes, uncomplicated; E66.01 Morbid (severe) obesity due to excess calories; I10 Essential (primary) hypertension; I89.0 Lymphedema, not elsewhere classified; Z91.81 History of falling; Z86.718 Personal history of other venous thrombosis and embolism; Z86.711 Personal history of pulmonary embolism; Z79.899 Other long term (current) drug therapy; Z79.51 Long term (current) use of inhaled steroids; Z88.2 Allergy status to sulfonamides
CPT/HCPCS: 10879

== ENCOUNTER 2020-03-02 17:07 | Emergency (ER) | payer OTHER ==
[~2020-03-02] VITALS: Ht 170.2 cm; Wt 136.1 kg
--- NOTE | ~2020-03-02 | EMS ---
[facility] [address] [place] [address] EMS Patient Care Report Name: CHRIS BROWN Room #: PRE M.R.#: [id number] Admission: Attend Phys: Discharge: Date of : 57 Report #: [id number] THIS REPORT FOR: //name// Report Transmitted: 03/02/2020 17:05 EMS Care Summary [facility] MED-ACT Incident [id number] @ 03/02/2020 16:27 Incident Location [address] [place] [address] Patient CHRIS BROWN Female, 64 Years 1955 Patient Address [address] [place] [address] Patient History Chronic Obstructive Pulmonary Disease (COPD),Hypertension (HTN),Smoking, Patient Allergies No known allergies, Patient Medications Lasix, Proair, Albuterol, Chief Complaint Severe left foot/leg pain and SOB Disposition Transported No Lights/[place] Reason Breathing Problem Transported To [facility] Narrative C - SOB and left foot/leg pain. [facility] [address] [place] [address] EMS Patient Care Report Name: CHRIS BROWN Room #: [facility] Tristan#: [id number] Admission: Attend Phys: Discharge: Date of : 57 Report #: [id number] - [id number] arrived on scene to a local apartment complex to find Ms. Brown a 64 y/o female found sitting upright on a couch located in the living room. Ms. Brown was found CAOx4 and able to speak in full and complete sentences upon our arrival. The patient had complaint during our interaction of SOB, severe left foot pain, and numbness in bilateral legs. The patient reported that all of these complaints started on approx. after she had a ground level fall. The patient adamantly denied any new subjective complaint during our entire interaction, and she simply reported that she was tired of dealing with all of this. She reported that she needed some answers and wanted to go to [facility] for further eval. The patient denied any recent illness, injury, or medication change. The patient reported that she was prescribed Lasix but stopped taking that 3 months prior. The patient denied any COVID concerns, and reported that her respiratory complaint has not changed over the past three months. The patient has her own MDI and home O2 which she reported she wears when sleeping or during exertion. R - Initial assessment, physical examination, V/s, pt. assisted to stretcher, O2 administration, continued reassessment. T - No change was noted in the patient's V/s, presentation, or complaint during transport. The patient was moved over into bed in ED room via sheet drag without incident with report given to ED RN. Initial Vitals @16:59P: 91,R: 20,BP: 172/100,GCS: 15,SpO2: 96,Revised Trauma: 12, @16:35P: 89,R: 16,BP: 172/92,Pain: 10/10,GCS: 15,Temp: 96.7F,SpO2: 83,Revised Trauma: 12, Assessments @16:33MENTAL:Person Oriented,Event Oriented,Place Oriented,Time Oriented,SKIN:HEENT:Head/Face: No Abnormalities,Neck/Airway: No Abnormalities,LUNG SOUNDS:ABDOMEN:PELVIS//GI:EXTREMITIES:Left Leg: Edema,Right Leg: Edema,Left Arm: No Abnormalities,Right Arm: No Abnormalities,PULSE:NEURO: Impression Shortness of breath Procedures @16:37Surgical Mask on PatientResponse: Unchanged@16:42Oxygen FlowRate: 2 Device: Nasal Cannula (NC) Response: UnchangedSucceeded Timeline 16:25,Call Received 16:25,Psap Call 16:27,Dispatched [address] [address] EMS Patient Care Report Name: CHRIS BROWN Room #: PRE M.R.#: [id number] Admission: Attend Phys: Discharge: Date of : 57 Report #: [id number] 16:27,En Route 16:31,On Scene 16:32,At Patient 16:35,BP: 172/92 M,PULSE: 89,RR: 16 R,SPO2: 83 Ox,ETCO2: ,BG: ,PAIN: 10,GCS: 15, 16:37,Surgical Mask on Patient,Response: Unchanged 16:42,Oxygen FlowRate: 2 Device: Nasal Cannula (NC) Response: UnchangedSucceeded, 16:46,Depart Scene 16:59,BP: 172/100 M,PULSE: 91,RR: 20 R,SPO2: 96 Ox,ETCO2: ,BG: ,PAIN: ,GCS: 15, 17:03,At Destination 17:23,Call Closed Disclaimer v1.1 Copyright 2020 [employer] This EMS Care Summary contains data elements from the applicable legal record (which may be displayed differently). It is designed to provide pertinent information for the following purposes: continuity of care, clinical quality, and state data reporting. The complete legal record is available to ED staff and administrators of the receiving hospital in [employer]'s Patient Tracker. All data is provided "as is."
[~2020-03-02 17:07] MED LIST changes: +CEFUROXIME500 MG PO; +KLOR-CON M2020 MEQ PO; +LASIX 40 MG TAB40 MG PO; +NICOTINE TRANSD21 M1 TRANSDERM
[2020-03-02 18:03] LABS: ABSOLUTE NEUTROPHILS 5.9 thou/uL (1.4-8.2); BASOPHILS 0.9 % (0.0-2.0); EOSINOPHILS 3.4 % (0.0-3.0); HEMATOCRIT 42.2 % (37.0-47.0); HEMOGLOBIN 13.6 gm/dL (12.0-15.0); LYMPHOCYTES 16.4 % (24.0-44.0); MCH 27.3 pg (26.0-34.0); MCHC 32.1 g/dL (28.0-37.0); MCV 84.9 fL (80.0-100.0); MONOCYTES 7.2 % (1.0-8.0); PLATELET COUNT 286 thou/uL (150-400); POLYS 72.1 % (36.0-66.0); RBC 4.97 mil/uL (4.20-5.00); RDW 16.5 % (10.5-14.5); WBC 8.2 thou/uL (4.0-11.0)
[2020-03-02 18:17] LABS: ANION GAP 3 mmol/L (7-16); BUN 9 mg/dL (7-18); CALCIUM 8.6 mg/dL (8.5-10.1); CHLORIDE 102 mmol/L (98-107); CO2 30 mmol/L (21-32); CREATININE 0.9 mg/dL (0.6-1.0); GLUCOSE 96 mg/dL (74-106); SODIUM 135 mmol/L (136-145)
[2020-03-02 18:32] LABS: TROPONIN-I <0.06 ng/mL (<0.06)
[2020-03-02 18:34] LABS: DIRECT BILIRUBIN < 0.1 mg/dL (<0.1-0.2); SGOT 32 U/L (15-37); SGPT 15 U/L (14-59); TOTAL BILIRUBIN 0.5 mg/dL (0.2-1.0); TOTAL PROTEIN 7.3 g/dL (6.4-8.2)
[2020-03-02 19:23] LABS: BE(vivo) -1.5 mmol/L (-2 to +3); HCO3 24.1 mmol/L (22.0-26.0); PCO2 43.8 mmHg (35.0-45.0); pH 7.359 (7.360-7.450)
[2020-03-02 20:03] VITALS: BP 152/62
[2020-03-02] MEDS ORDERED: VENTOLIN HFA 1818 GM INH (20:11)
[2020-03-02] MEDS ORDERED: ACCUNEB SO1.25 MG/1 INH (20:11)
[2020-03-02] MEDS ORDERED: PREDNISONE 20 M20 MG PO (20:11)
[2020-03-02] MEDS ORDERED: NORCO 5-325 TA1 EAC1 PO (20:41)
--- NOTE | 2020-03-03 07:37 | EKG ---
[facility] [place] [address] ELECTROCARDIOGRAM REPORT Name: CHRIS FERGUSON Room #: [facility]#: [id number] Admission: 03/02/20 Attend Phys: Discharge: 03/02/20 Date of : 57 Report #: [id number] THIS REPORT FOR: cc: Denzel Willams MD, Ammar MD Lundgren,Danilo Regan MD 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: : 1955 Requested By: Wesley Tavarez Order Number: [id number] MD: Danilo Jordan Measurements Intervals [place] Rate: 91 P: 118 VA: 163 QRS: 161 QRSD: 88 T: 163 QT: 378 QTc: 466 Interpretive Statements Sinus rhythm Rightward axis Cannot rule out probable lateral infarct, age indeterminate Baseline wander in lead(s) I,II,aVR,aVL,aVF Compared to ECG 11/20/2019 20:25:52 High lateral Q waves are now present Electronically Signed On 03-03-2020 7:36:44 CDT by Danilo Jordan [email or web address] <ELECTRONICALLY SIGNED> By: Danilo Jordan MD, FAC 03/03/20 0736 1739 1739 Danilo Jordan MD, FAC /EPI
== END 2020-03-02 20:51 | disposition home or self-care (01) ==
LOC: ER 17:07
PROVIDERS: Emergency Medicine; Physician Assistant
DX: J44.1 Chronic obstructive pulmonary disease with (acute) exacerbation (principal); I89.0 Lymphedema, not elsewhere classified; F17.210 Nicotine dependence, cigarettes, uncomplicated; G43.909 Migraine, unspecified, not intractable, without status migrainosus; Z88.2 Allergy status to sulfonamides; Z79.899 Other long term (current) drug therapy; Z86.718 Personal history of other venous thrombosis and embolism; Z86.711 Personal history of pulmonary embolism; Z98.51 Tubal ligation status

== ENCOUNTER 2021-03-05 14:25 | Inpatient (IN) | payer OTHER ==
[~2021-03-05] VITALS: Ht 182.9 cm; Wt 174.2 kg
[~2021-03-05 14:25] MED LIST changes: +NORCO 5-325 TA1 EAC1 PO
[2021-03-05 14:29] VITALS: BP 127/61
[2021-03-05 14:47] LABS: BE(vivo) 7.1 mmol/L (-2 to +3); HCO3 36.3 mmol/L (22.0-26.0); sO2 99.4 % (92.0-98.0)
[2021-03-05 14:48] LABS: pH 7.308 (7.360-7.450)
[2021-03-05 15:19] LABS: HEMATOCRIT 44.4 % (37.0-47.0); HEMOGLOBIN 13.2 gm/dL (12.0-15.0); MCH 25.1 pg (26.0-34.0); MCHC 29.8 g/dL (28.0-37.0); MCV 84.1 fL (80.0-100.0); PLATELET COUNT 199 thou/uL (150-400); RBC 5.28 mil/uL (4.20-5.00); WBC 6.4 thou/uL (4.0-11.0)
[2021-03-05 15:29] LABS: ANION GAP 1 mmol/L (7-16); BUN 7 mg/dL (7-18); CALCIUM 8.5 mg/dL (8.5-10.1); CHLORIDE 104 mmol/L (98-107); CO2 37 mmol/L (21-32); CREATININE 0.9 mg/dL (0.6-1.0); GLUCOSE 103 mg/dL (74-106); POTASSIUM 4.3 mmol/L (3.5-5.1); SODIUM 142 mmol/L (136-145)
[2021-03-05 15:38] LABS: TROPONIN-I <0.06 ng/mL (<0.06)
[2021-03-05 15:57] LABS: ABSOLUTE NEUTROPHILS 4.7 thou/uL (1.4-8.2)
[2021-03-05 16:37] LABS: URINE BILIRUBIN NEGATIVE (Negative); URINE BLOOD TRACE (Negative); URINE CLARITY CLEAR; URINE COLOR YELLOW; URINE GLUCOSE-RANDOM* NEGATIVE (Negative); URINE KETONES NEGATIVE (Negative); URINE NITRITE-REFLEX NEGATIVE (Negative); URINE PROTEIN (DIPSTICK) NEGATIVE (Negative); URINE SPECIFIC GRAVITY <= 1.005 (1.005-1.035)
[2021-03-05 16:39] LABS: URINE LEUKOCYTES-REFLEX 1+ (Negative)
[2021-03-05 16:44] LABS: SQUAMOUS 4-10 Moderate /LPF (0-3); URINE WBC-REFLEX 6-15 Few /HPF (0-5)
[2021-03-05 16:45] LABS: CASTS None Seen /LPF (None Seen); CRYSTALS None Seen /LPF (None Seen); URINE RBC None Seen /HPF (NONE SEEN)
[2021-03-05 17:30] VITALS: BP 116/94
[2021-03-05 17:50] VITALS: BP 125/78
[2021-03-05 18:15] VITALS: BP 154/92
[2021-03-05 19:51] VITALS: BP 153/66
[2021-03-05 20:53] LABS: BE(vivo) 7.4 mmol/L (-2 to +3); HCO3 37.6 mmol/L (22.0-26.0); sO2 83.9 % (92.0-98.0)
[2021-03-05 20:55] LABS: pH 7.292 (7.360-7.450)
[2021-03-05 20:56] LABS: PCO2 79.6 mmHg (35.0-45.0); PO2 55.4 mmHg (80.0-100.0)
[2021-03-05] MEDS ORDERED: PREDNISONE 20 M20 M1 PO (22:35)
[2021-03-05] MEDS ORDERED: LASIX 40 MG TAB40 MG PO (22:37)
[2021-03-05 23:08] LABS: CALCIUM 8.8 mg/dL (8.5-10.1); CREATININE 1.1 mg/dL (0.6-1.0); POTASSIUM 4.5 mmol/L (3.5-5.1)
[2021-03-05 23:56] VITALS: BP 144/77
--- NOTE | 2021-03-06 02:19 | NUR ---
1953 ASSUMED CARE FROM DAY RN. TO FLOOR AT 1815 FROM ER PER CART. PATIENT REFUSING BIPAP WITHOUT SEDATION. AWAITING ICU BED. PATIENT WITH PURSED LIP BREATHING, ON 6L/NC. 2029 STEAM BRUSH OPERATOR HERE AND TURNED O2 TO 3L/NC O2 SAT UPPER 90"S. STEAM BRUSH OPERATOR STATES SHE SPOKE WITH AND PATIENT WILL REMAIN ON 2N. 2054 CRITICAL LABS CALLED TO . RETURNED CALL AT 2109 AND ORDERS OBTAINED. RT PRESENT AND INFORMED OF CALL. 2299 ADMISSION PROCESS COMPLETED. KITA IT FIELD TECHNICIAN HERE AND SPEAKING WITH PATIENT ON NEED FOR BIPAP. PATIENT DOESNT WANT IT. CALLED AND PATIENT SPOKE WITH HIM. CODE GIVEN TO . 0 SPOKE WITH ON PHONE FOR 15 MIN. EXPLAINING STATUS AND ENCOURAGING HIM TO TALK PATIENT INTO USING BIPAP. 0020 PATIENT SPOKE WITH AGAIN AND HAS AGREED TO BIPAP AFTER A SNACK AND SOMETHING TO RELAX HER. 0116 RT HERE. ATIVAN GIVEN. PLACED ON BIPAP. WILL ASSES CLOSELY. 0230 RESTING QUIETLY WITH EYES CLOSED ON BIPAP. TOLERATING. CONTINUE TO ASSES.
[2021-03-06 04:39] VITALS: BP 128/71
[2021-03-06 05:10] LABS: BE(vivo) 9.9 mmol/L (-2 to +3); HCO3 38.4 mmol/L (22.0-26.0); PCO2 70.9 mmHg (35.0-45.0); pH 7.352 (7.360-7.450)
[2021-03-06 05:19] LABS: HEMOGLOBIN 12.8 gm/dL (12.0-15.0); MCH 25.5 pg (26.0-34.0); MCHC 30.5 g/dL (28.0-37.0); MCV 83.5 fL (80.0-100.0); RBC 5.03 mil/uL (4.20-5.00); RDW 17.6 % (10.5-14.5); WBC 4.8 thou/uL (4.0-11.0)
--- NOTE | 2021-03-06 05:28 | NUR ---
TOLERATED BIPAP FOR 4 HOURS WITH MUCH ENCOURAGEMENT. NOW BACK ON 6L/HFC. RESTING WITHOUT COMPLAINTS OF PAIN. CONTINUE TO ASSES CLOSELY.
[2021-03-06 05:37] LABS: CREATININE 0.9 mg/dL (0.6-1.0); POTASSIUM 4.3 mmol/L (3.5-5.1)
[2021-03-06 08:00] VITALS: BP 136/89
--- NOTE | 2021-03-06 11:36 | EKG ---
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 : 1955 Requested By: Kale Hidalgo Order Number: [id number] MD: Jewel Almodovar Measurements Intervals [place] Rate: 77 P: 71 IL: 149 QRS: 72 QRSD: 86 T: 39 QT: 368 QTc: 417 Interpretive Statements Sinus rhythm Atrial premature complexes Low voltage, precordial leads Nonspecific T abnormalities, anterior leads Compared to ECG 03/02/2020 17:39:43 Atrial premature complex(es) now present Low QRS voltage now present T-wave abnormality now present Right-axis deviation no longer present Myocardial infarct finding no longer present Electronically Signed On 03-06-2021 11:35:51 CDT by Jewel Almodovar [email or web address] <ELECTRONICALLY SIGNED> By: Jewel Almodovar MD 03/06/21 1135 1458 1458 Jewel Almodovar MD /EPI
--- NOTE | 2021-03-06 11:57 | NUR ---
RECEIVED THE PATIENT ON BED, CONSCIOUS AND ORIENTED.NOT IN ANY DISTRESS.BSL BEFORE BREAKFAST WAS 152 BUT PATIENT REFUSED TO HAVE THE MORNING DOSE INSULIN, ACCORDING TO HER SHE IS NOT DIABETIC, EDUCATED HER ABOUT THE INDICATION FOR GIVING THE INSULIN BUT SHE STILL REFUSED TO HAVE IT.PATIENT ALSO REFUSED TO HAVE THE COVID SWAB DONE.INFORMED HER OF THE NEED TO HAVE IT DONE BUT SHE STILL STRONGLY REFUSED.
[2021-03-06 12:00] VITALS: BP 134/68
--- NOTE | 2021-03-06 13:44 | NUR ---
PT SEEN BY WOUND DR GROSS. R LEG PRESSURE DRESSING REMOVED. SKIN TEAR ON LEG BLEEDING, SANGUINEOUS/SEROSANGINEOUS DISCHARGE ON ABD DRESSING AND LINENS. WOUND DRESSING TO BE FOLLOWS: MORPHINE SILVADINE, XEROFORM, ABD DRESSING, AND WRAP WITH KRELIX. PHOTO TAKE OF WOUND. WILL CONTINUE TO MONITOR SITE FOR CONTINUED DISCHARGE/BLEEDING.
[2021-03-06 16:00] VITALS: BP 118/64
--- NOTE | 2021-03-06 17:56 | NUR ---
COMPLAINED OF HEADACHE THIS AFTERNOON, PATIENT TOLD SHE TAKES EXCEDRIN FOR HEADACHE TYLENOL DOESNT WORK FOR HER.EXPLAINED POSSIBLE SIDE EFFECTS OF EXCEDRIN AND PATIENT SIGNED ACKNOWLEDGEMENT FORM FOR EXCEDRIN.VERBALIZED RELIEF FROM HEADACHE AFTERWARDS.RIGHT FOOT DRESSING DONE ASEPTICALLY.PATIENT ALSO REQUESTED TO PUT A BANDAGE ON HER LEFT FOOT ALTHOUGH THERE IS NO OPEN WOUND ON THE LEFT FOOT.ALL HER NEEDS ATTENDED.
[2021-03-06 20:22] VITALS: BP 145/69
--- NOTE | 2021-03-07 01:03 | NUR ---
PT WORE BIPAP FROM 2200 TO 0030. SHE WAS ENCOURAGED TO WEAR BIPAP LONG SHE COULD TOLERATE IT. SHE REQUESTED TO TAKE IT OFF AT 0030 SHE STATED SHE STATED SHE WAS GETTING A HEADACHE FROM WEARING IT. PT'S WAS UPDATED (PER PT REQUEST) WHEN SHE INITALLY WENT ON BIPAP. PT WAS TAKE OFF BIPAP AND PLACED ON 6-8LNC TO KEEP SPO2 88-92%. WILL CONTINUE TO MONITOR.
--- NOTE | 2021-03-07 03:46 | NUR ---
PT HAS BEEN SLEEPING OFF AND ON DURING THE NIGHT. SHE CAN BE IRRITABLE AT TIMES BUT HAS BEEN MOSTLY COOPERATIVE WITH CARES DURING THE NIGHT. SHE DID NOT WANT TO BE REPOSITIONED SIDE TO SIDE IN THE BED, BUT DID ALLOW BLE TO BE ELEVATED ON PILLOWS. DRESSINGS INTACT TO BLE. LERMA TO DD WITH ADEQUATE URINE OUTPUT. FALL PRECAUTIONS IN PLACE. PROGRESSING SLOWLY TOWARD POC GOALS.
[2021-03-07 04:00] VITALS: BP 124/53
[2021-03-07 04:14] LABS: ANION GAP < 0 mmol/L (7-16); BUN 17 mg/dL (7-18); CALCIUM 8.3 mg/dL (8.5-10.1); CHLORIDE 102 mmol/L (98-107); CO2 42 mmol/L (21-32); CREATININE 0.9 mg/dL (0.6-1.0); GLUCOSE 136 mg/dL (74-106); POTASSIUM 4.1 mmol/L (3.5-5.1); SODIUM 143 mmol/L (136-145)
[2021-03-07 08:50] VITALS: BP 123/57
--- NOTE | 2021-03-07 11:50 | NUR ---
Nutrition: pt admitted with SOA, increased edema, seen due to fluid overload consult, wound risk. PMH: COPD, chronic DVT, bilateral LE lymphedema, PE. Extreme class 3 obesity with BMI 52. Left heel eschar, left calf cellulitis with 4+ bilateral feet/legs edema. On lasix, steroid. Recently ran out of medication per chart review. Eating 75-100% of meals. RD addressed education needs and pt stated no questions, was not interested. Did stress importance of dietary compliance. Would benefit from weight loss as well. Encouraged protein for wound healing. Place as low risk with no intervention planned.
[2021-03-07 12:25] VITALS: BP 140/64
--- NOTE | 2021-03-07 14:31 | NUR ---
PATIENT ALERT/ORIENTED. PLEASANT SO FAR THROUGH OUT THE DAY. PT/OT WORKING WITH PATIENT. STATES SHE HAS A HEADACHE BUT DOES NOT WANT WHAT IS ORDERED FOR HER ON HER EMAR. HAS HAD MULTIPLE CONVERSATIONS WITH DR. DE LEON, PATIENT REQUESTING EXCEDRIN BUT CONTRAINDICATED DUE TO HEMATOMA/BLEED TO LOWER EXTREMITY. PATIENT STATES SHE WOULD NOT LIKE TO MEDICALLY MANAGE HEADACHE IF SHE CANT TAKE EXCEDRIN. AT THIS MOMENT RESTING COMFORTABLY IN BED. PATIENT VOICES NO NEEDS OR CONCERNS AT THIS TIME.
[2021-03-07 16:32] VITALS: BP 134/53
[2021-03-07 20:45] VITALS: BP 148/72
--- NOTE | 2021-03-07 23:14 | NUR ---
MRSA CULTURE SWAB ORDERED BY HOSPITALIST. PT REFUSED TO HAVE NASAL SWAB PERFORMED.
--- NOTE | 2021-03-07 23:15 | NUR ---
PT'S CAME TO VISIT EARLIER IN THE EVENING. HE BROUGHT PT A BOTTLE OF EXCEDRIN MIGRAINE MEDICATION FROM HOME. BOTH PT AND HER WERE INFORMED THAT SHE CANNOT TAKE ANY HOME MEDICATIONS UNLESS ORDERED BY A PROVIDER. THEY WERE ALSO REMINDED THAT DR DE LEON DID NOT WANT PT TAKING EXCEDRIN DUE TO POTENTIAL COMPLICATIONS. PT DENIED TAKING ANY OF THE HOME MEDICATION. BOTH PT AND HER WERE COOPERATIVE WITH THE INFORMATION AND TOOK THE MEDICATION HOME.
--- NOTE | 2021-03-08 03:24 | NUR ---
PT SLEPT ON/OFF DURING THE NIGHT. SHE WORE BIPAP FOR ROUGHLY 4 HOURS AND TOLERATED IT WELL. 5-6L NC WHEN OFF BIPAP. PT COOPERATED WITH REPOSITIONING NNEU-HY-ZSAX IN THE BED. BLE ELEVATED ON PILLOWS. SHE CALLS OUT APPROPRIATELY AND HAS BEEN PLEASANT/COOPERATIVE DURING THE SHIFT. PROGRESSING SLOWLY TOWARD POC GOALS. WILL CONTINUE TO MONITOR.
[2021-03-08 04:00] VITALS: BP 122/70
[2021-03-08 06:13] LABS: BASOPHILS 0.1 % (0.0-2.0); HEMATOCRIT 42.3 % (37.0-47.0); HEMOGLOBIN 13.2 gm/dL (12.0-15.0); LYMPHOCYTES 4.9 % (24.0-44.0); MCH 25.3 pg (26.0-34.0); MCHC 31.2 g/dL (28.0-37.0); MCV 81.1 fL (80.0-100.0); MONOCYTES 3.5 % (1.0-8.0); PLATELET COUNT 206 thou/uL (150-400); POLYS 91.5 % (36.0-66.0); RBC 5.22 mil/uL (4.20-5.00); RDW 17.6 % (10.5-14.5); WBC 6.6 thou/uL (4.0-11.0)
[2021-03-08 06:27] LABS: CALCIUM 8.5 mg/dL (8.5-10.1); CREATININE 0.8 mg/dL (0.6-1.0)
--- NOTE | 2021-03-08 08:00 | HC ---
[facility] [place] [address] CONSULTATION Name: CHRIS FERGUSON Room #: 213-P ADM IN M.R.#: [id number] Admission: 03/05/21 Attend Phys: Main Wilcox MD Discharge: Date of : 57 Report #: [id number] THIS REPORT FOR: cc: FAM - No family physician/PCP FAM - No family physician/PCP Rogelio Lynch MD ~ DOC #: [id number] Rogelio Lynch MD DATE OF SERVICE: 03/06/2021 WOUND CARE CONSULTATION NOTE LOCATION: [facility] REASON FOR CONSULTATION: Super morbid obesity with alveolar hypoventilation and shortness of breath, admitted via ER for shortness of breath with bilateral lymphedema and sustained avulsion type laceration, skin tear of right lower leg and ER transfer. HISTORY OF PRESENT ILLNESS: The patient is a 65-year-old woman with a history of chronic lymphedema of the lower extremities. She presented to the emergency room with severe COPD, super morbid obesity with alveolar hypoventilation and shortness of breath. She is admitted on oxygen for shortness of breath. The patient gives a history that at some point in her ER, transfer from one conveyance to another, she sustained an injury of the right lower leg. This was dressed with a sterile dressing. Wound care was consulted. PAST MEDICAL HISTORY: Super morbid obesity with alveolar hypoventilation, COPD, history of DVT, chronic lymphedema of lower extremities, tobacco abuse in the past, history of pulmonary embolism. ALLERGIES: SULFA, but the patient states she has no known recollection of severe reaction to sulfa. MEDICATIONS: Includes prednisone. PHYSICAL EXAMINATION: GENERAL: Shows elderly woman with super morbid obesity with some shortness of breath. HEENT: Mucous membranes are moist. LUNGS: Respirations are not labored. ABDOMEN: Super morbidly obese. EXTREMITIES: Examination of lower extremities shows chronic lymphedema of both lower extremities. There is some redness of both lower legs, which I interpret as chronic inflammation. There is a blood saturated dressing of her right lower leg, which is removed. This demonstrates a triangular shaped avulsion type skin [facility] [address] [place] [address] CONSULTATION Name: MARTYCHRIS L Room #: 213-P [facility] [place] ..#: [id number] Admission: 03/05/21 Attend Phys: Main Wilcox MD Discharge: Date of : 57 Report #: [id number] tear laceration of the right lateral lower leg measuring approximately 3 cm on each side of the V-shaped laceration. There is a 0.5 cm of exposed subcutaneous tissue on either side. This was no longer actively bleeding. Xeroform dressing is applied and morphine, Silvadene dressings with Xeroform, ABD, and Kerlix wrap were ordered daily. IMPRESSION AND PLAN: 1. Super morbid obesity with alveolar hypoventilation. 2. Chronic obstructive pulmonary disease. 3. Admitted for shortness of breath. 4. Chronic lymphedema of lower extremities. 5. History of deep venous thrombosis and pulmonary embolus. 6. Avulsion type skin tear laceration of the right lower leg. We will treat this with topical morphine, Silvadene, Xeroform, ABD, Kerlix wrap. Discussed with her that in the setting of lymphedema, leg wounds can take longer to heal. She may need to follow up in wound care clinic. Wound care team will be apprised and will follow the patient. Rogelio Lynch MD ABJ/KEVIN <ELECTRONICALLY SIGNED> By: Rogelio Lynch MD 03/08/21 0800 1250 2135 Rogelio Lynch MD /nt
[2021-03-08 09:22] VITALS: BP 134/70
[2021-03-08 12:52] VITALS: BP 147/80
[2021-03-08 16:28] VITALS: BP 150/75
--- NOTE | 2021-03-08 17:31 | NUR ---
Met with patient. She resides at home with spouse in independent apt with no steps. Patient has home oxygen via [employer]. She reports she sleeps in reclyner at home. she uses walker to bathroom and reports mostly sedentary at home. Her spouse does all cooking and cleaning. Patient reports she has insurance. She has new PCP. Fidencio met with patient and reports her insurance is active. Faxed to admitting to change face sheet for active medicaid. Patient reports she does not need skilled she feels she can return home at [place].
[2021-03-08 18:34] VITALS: BP 135/59
[2021-03-08 19:32] VITALS: BP 148/68
[2021-03-09 04:13] VITALS: BP 90/74
--- NOTE | 2021-03-09 05:10 | NUR ---
PT SLEPT FOR ROUGHLY 4.5 HOURS ON BIPAP DURING THE NIGHT. 3L NC WHILE AWAKE. DRESSINGS CHANGED TO BLE WOUNDS. LERMA TO DD WITH GOOD URINE OUTPUT. VSS. AFEBRILE. PROGRESSING TOWARD POC GOALS. WILL CONTINUE TO MONITOR.
[2021-03-09 07:49] VITALS: BP 147/81
[2021-03-09 11:51] VITALS: BP 144/87
[2021-03-09 15:17] VITALS: BP 144/85
[2021-03-09 19:20] VITALS: BP 154/64
[2021-03-10 07:30] VITALS: BP 120/69
--- NOTE | 2021-03-10 09:44 | NUR ---
ASSUMED PT CARE AT 0700. PT IN BED RESTING. 0930 ASSESSMENT PERFORMED CHARTED. DELAYED TO PRIORITY OF CARE. VSS. PT VOICES NO CONCERNS AT THIS TIME. VSS. WILL CONTINUE TO MONITOR AND FOLLOW POC.
[2021-03-10 11:14] VITALS: BP 119/69
--- NOTE | 2021-03-10 11:47 | NUR ---
PT WORKING WITH PT/OT CURRENTLY. PTS ASSESSMENT UNCHANGED. PT SITTING ON SIDE OF BED PREPARING FOR LUNCH. VSS. WILL CONTINUE TO MONITOR AND FOLLOW POC.
[2021-03-10 15:05] VITALS: BP 117/67
--- NOTE | 2021-03-10 15:08 | NUR ---
Cm has attempted to locate a agency that contracts with her [place] Medicaid plan without success. We have tried over 20 different agencies. Pt has home o2 and rwalker in place. Plan for home with outpt f/u discussed with the pt at bedside. She confirms that she has a new pt pcp appt setup for March 17 but can not recall the phyisican's name. She indicates her spouse can assist her with tx and adl's at home. She is not interested in long term placement and feels they can continue to manage her care needs in the home. Catering Administrative Assistant encouraged her to f/u with her medicaid plan regarding any home care benefits.
--- NOTE | 2021-03-10 15:12 | NUR ---
AT 1400 WOUND CARE WAS PROVIDED TO BILATERAL LEGS DIRECTED BY WOUND CARE. PT TOLERATED PROCEDURE WELL. PT VOICES NO FUTHER CONCERNS AT THIS TIME. WILL CONTINUE TO MONITOR AND FOLLOW POC.
[2021-03-10 20:15] VITALS: BP 126/65
[2021-03-11 04:10] VITALS: BP 150/56
--- NOTE | 2021-03-11 05:51 | NUR ---
PT STATES SHE IS READY TO GO HOME TODAY. A/OX4, AND VSS. PT REFUSED TO BE ON BIPAP OVERNIGHT AND STAYED ON 3L VIA NC. TELE SHOWS SR. CALL LIGHT WITHIN REACH.
[2021-03-11 07:30] VITALS: BP 123/83
[2021-03-11] MEDS ORDERED: LEVOFLOXACIN500 MG PO (10:21)
[2021-03-11 11:40] VITALS: BP 141/89
[2021-03-11 12:26] VITALS: BP 141/89
[2021-03-11 12:37] VITALS: BP 141/89
--- NOTE | 2021-03-11 12:40 | NUR ---
[facility] is able to accept for [facility]h and takes pt's ins plan. They can provide PT/OT as well as RN visits. Dc summary and orders faxed to intake. They will be out to see the pt in 1-2 days and call her to schedule. Pt aware and agreeable. No other needs noted.
--- NOTE | 2021-03-11 15:01 | NUR ---
PATIENT DC TO HOME VIA WHEEL CHAIR TO PRIVATE CAR. DC PAPERWORK DISCUSSED WITH PATIENT. PATIENT HAS NO QUESTIONS ATT. IV DC FROM LEFT HAND. TELE REMOVED. VSS.
== END 2021-03-11 14:30 | disposition home health service (06) | DRG 291 ==
LOC: ER 14:25 → EROBS 16:59 → 2N 16:59
PROVIDERS: Internal Medicine; Internal Medicine Pulmonary Disease; Nurse Practitioner; ADMIT Hospitalist; ATTEND Hospitalist
PROC: 5A0935A Assistance with Respiratory Ventilation, Less than 24 Consecutive Hours, High Flow/Velocity Cannula (ICD-10-PCS; principal; 2021-03-05)
PROC: 5A09357 Assistance with Respiratory Ventilation, Less than 24 Consecutive Hours, Continuous Positive Airway Pressure (ICD-10-PCS; 2021-03-06)
PROC: 5A09357 Assistance with Respiratory Ventilation, Less than 24 Consecutive Hours, Continuous Positive Airway Pressure (ICD-10-PCS; 2021-03-07)
PROC: 5A09357 Assistance with Respiratory Ventilation, Less than 24 Consecutive Hours, Continuous Positive Airway Pressure (ICD-10-PCS; 2021-03-08)
PROC: 5A09357 Assistance with Respiratory Ventilation, Less than 24 Consecutive Hours, Continuous Positive Airway Pressure (ICD-10-PCS; 2021-03-09)
PROC: 5A09357 Assistance with Respiratory Ventilation, Less than 24 Consecutive Hours, Continuous Positive Airway Pressure (ICD-10-PCS; 2021-03-10)
PROC: 5A09357 Assistance with Respiratory Ventilation, Less than 24 Consecutive Hours, Continuous Positive Airway Pressure (ICD-10-PCS; 2021-03-11)
DX: I11.0 Hypertensive heart disease with heart failure (principal); J96.22 Acute and chronic respiratory failure with hypercapnia; J18.9 Pneumonia, unspecified organism; J96.21 Acute and chronic respiratory failure with hypoxia; E66.2 Morbid (severe) obesity with alveolar hypoventilation; J44.1 Chronic obstructive pulmonary disease with (acute) exacerbation; N39.0 Urinary tract infection, site not specified; L03.115 Cellulitis of right lower limb; Z68.43 Body mass index [BMI] 50.0-59.9, adult; J44.0 Chronic obstructive pulmonary disease with (acute) lower respiratory infection; I50.9 Heart failure, unspecified; G43.909 Migraine, unspecified, not intractable, without status migrainosus; B36.9 Superficial mycosis, unspecified; S91.001A Unspecified open wound, right ankle, initial encounter; R53.81 Other malaise; S80.811A Abrasion, right lower leg, initial encounter; Z20.822 Contact with and (suspected) exposure to COVID-19; I89.0 Lymphedema, not elsewhere classified; S81.811A Laceration without foreign body, right lower leg, initial encounter; X58.XXXA Exposure to other specified factors, initial encounter; Y93.89 Activity, other specified; Y92.89 Other specified places as the place of occurrence of the external cause; Y99.8 Other external cause status; Z86.718 Personal history of other venous thrombosis and embolism; Z86.711 Personal history of pulmonary embolism; Z88.2 Allergy status to sulfonamides; Z87.891 Personal history of nicotine dependence; Z91.14 Patient's other noncompliance with medication regimen; Z71.6 Tobacco abuse counseling; Z79.52 Long term (current) use of systemic steroids
CPT/HCPCS: 10081